=== PATIENT | male | born 1940 | race Caucasian/White ===

== ENCOUNTER → 2017-10-18 | Outpatient (CLI) | payer MEDICARE ==
[~2017-10-18] MED LIST: ALLO100T30 PO; ASCO500T8 PO; MULT-658 PO; OMEP-110 PO; UBID1CAP43 PO; atorvastatin PO
== END | disposition home or self-care (01) ==
LOC: STAR 09:14
PROVIDERS: ATTEND Internal Medicine Geriatric Medicine
DX: R94.31 Abnormal electrocardiogram [ECG] [EKG] (principal)
CPT/HCPCS: 93005

== ENCOUNTER 2017-10-22 10:35 | Day surgery (SDC) | payer MEDICARE ==
[~2017-10-22] VITALS: Ht 195.6 cm; Wt 114.1 kg
[2017-10-22] MEDS ORDERED: LACTATED RINGERS 1,000 ML IV SCH (11:02)
[2017-10-22 11:30] VITALS: BP 124/85
[2017-10-22] MEDS ORDERED: PROPOFOL 50 ML ONE ×2 (12:57→14:02)
[2017-10-22] MEDS ORDERED: PROMETHAZINE 12.5 MG SUPP PR PRN (14:00)
[2017-10-22] MEDS ORDERED: FENTANYL PF 100 MCG/2ML IV PRN (14:00)
[2017-10-22] MEDS ORDERED: ONDANSETRON 2MG/ML, 2ML IVPush PRN (14:00)
[2017-10-22] MEDS ORDERED: DIAZEPAM 5 MG/ML, 2ML IVPush PRN (14:00)
[2017-10-22] MEDS ORDERED: MIDAZOLAM 1 MG/ML, 2ML IV PRN (14:00)
[2017-10-22] MEDS ORDERED: KETOROLAC 30 MG/1 ML IV PRN (14:00)
[2017-10-22] MEDS ORDERED: hydrALAzine 20 MG/ML, 1ML IV PRN (14:00)
[2017-10-22] MEDS ORDERED: HYDROcodone/APAP 7.5-325MG/15ML UDC PO PRN (14:00)
[2017-10-22] MEDS ORDERED: PROMETHAZINE 25 MG/ML, 1ML IV PRN (14:00)
[2017-10-22] MEDS ORDERED: ALBUTEROL SULFATE 2.5 MG/3 ML NPPB PRN (14:00)
[2017-10-22] MEDS ORDERED: OXYcodone 5 MG/5 ML ORAL.SOL UDC PO PRN (14:00)
[2017-10-22] MEDS ORDERED: MEPERIDINE/PF 25MG/0.5ML IVPush PRN (14:00)
[2017-10-22] MEDS ORDERED: EPHEDRINE 50 MG/ML, 1ML IVPush PRN (14:00)
[2017-10-22] MEDS ORDERED: ACETAMINOPHEN 325 MG TABLET PO PRN (14:00)
== END 2017-10-22 16:10 ==
LOC: OUT 10:35
PROVIDERS: ATTEND Internal Medicine Geriatric Medicine
DX: K63.5 Polyp of colon (principal); K62.89 Other specified diseases of anus and rectum
CPT/HCPCS: 45380; 45392; 88172; 88173; 88305; J2704; J7120